=== PATIENT | female | born 1945 | race Hispanic/Latino ===

== ENCOUNTER 2019-06-15 09:46 | Emergency (ER) | payer OTHER, MEDICARE ==
[~2019-06-15 09:46] MED LIST: ACET-2743 PO; ALEN70TA10 PO; ATOR40TA71 PO; LISI30TA4 PO; SOLI10TA PO
[2019-06-15 10:32] LABS: BASOPHILS % (AUTO) 0.6 % (0.0-5.0); EOSINOPHILS % (AUTO) 1.2 % (0.0-8.0); HEMATOCRIT 31.3 % (36-48); LYMPHOCYTES % (AUTO) 25.5 % (21.0-51.0); MEAN CORPUSCULAR HEMOGLOBIN 30.3 pg (27.0-33.0); MEAN CORPUSCULAR HGB CONC 32.9 g/dL (32.0-36.0); MEAN CORPUSCULAR VOLUME 92.1 fL (79-99); MONOCYTES % (AUTO) 8.9 % (3.0-13.0); NEUTROPHILS % (AUTO) 63.4 % (40.0-77.0); PLATELET COUNT (AUTO) 169 K/uL (130-400); RED CELL DISTRIBUTION WIDTH 13.2 % (11.0-15.5); WHITE BLOOD COUNT (AUTO) 4.8 K/uL (4.8-10.8)
[2019-06-15 10:37] LABS: CREATININE 0.9 mg/dL (0.5-1.5); POTASSIUM 3.4 mmol/L (3.5-5.1)
[2019-06-15 10:42] LABS: INR 1.09 (0.85-1.15); PARTIAL THROMBOPLASTIN TIME 24.6 SEC (26.3-35.5); PROTHROMBIN TIME 11.4 SEC (9.6-11.6)
[2019-06-15 10:46] LABS: ALBUMIN 3.2 g/dL (3.5-5.0); BILIRUBIN,TOTAL 0.5 mg/dL (0.2-1.0); TOTAL PROTEIN, SERUM 6.7 g/dL (6.0-8.3)
[2019-06-15 10:53] LABS: B-TYPE NATRIURETIC PEPTIDE 42 pg/mL (0-100)
[2019-06-15 10:58] LABS: APPEARANCE,URINE Clear (CLEAR); BILIRUBIN,URINE Negative (NEGATIVE); COLOR,URINE Yellow (YELLOW); GLUCOSE, URINE (UA) Negative (NEGATIVE); KETONES,URINE Negative (NEGATIVE); LEUKOCYTE ESTERASE ,URINE Trace (NEGATIVE); NITRATE,URINE Negative (NEGATIVE); OCCULT BLOOD,URINE Small (NEGATIVE); PROTEIN,URINE Negative (NEGATIVE)
[2019-06-15 11:13] LABS: BACTERIA,URINE Rare /HPF (None Seen); WBC,URINE 0-1 /HPF (0-1)
[2019-06-15 11:14] LABS: MUCUS,URINE Rare LPF (None Seen); SQUAMOUS EPITHELIAL CELL,UR Rare /HPF (0-2)
[2019-06-15] MEDS ORDERED: POTASSIUM CHLORIDE 20 MEQ ERTAB PO ONE (11:22)
[2019-06-15] MEDS ORDERED: SODIUM CHLORIDE 0.9% 1000ML 1,000 ML IV ONE ×2 (11:23→12:16)
== END 2019-06-15 15:05 | disposition home or self-care (01) ==
LOC: EDH 09:46
DX: E86.1 Hypovolemia (principal); D64.9 Anemia, unspecified; E78.5 Hyperlipidemia, unspecified; I10 Essential (primary) hypertension; Z90.710 Acquired absence of both cervix and uterus; Z79.899 Other long term (current) drug therapy
CPT/HCPCS: 36415; 71045; 80053; 81001; 82550; 83605; 83880; 84484; 85025; 85610; 85730; 87040 ×2; 87804 ×2; 93005; 96360; 96361; 99285; J7030 ×2; 96365; 96366

== ENCOUNTER 2019-07-12 17:38 | Emergency (ER) | payer OTHER, MEDICARE | END 2019-07-12 18:44 | disposition home or self-care (01) | LOC: EDH 17:38 | DX: F33.8 Other recurrent depressive disorders (principal); E78.5 Hyperlipidemia, unspecified; I10 Essential (primary) hypertension; Z90.49 Acquired absence of other specified parts of digestive tract; Z90.710 Acquired absence of both cervix and uterus | CPT/HCPCS: 99281 ==

== ENCOUNTER 2019-10-26 04:49 | Inpatient (IN) | payer OTHER, MEDICARE ==
[~2019-10-26] VITALS: Ht 154.9 cm; Wt 69.1 kg
[2019-10-26 06:06] LABS: BASOPHILS % (AUTO) 0.4 % (0.0-5.0); EOSINOPHILS % (AUTO) 1.1 % (0.0-8.0); HEMATOCRIT 27.8 % (36-48); LYMPHOCYTES % (AUTO) 21.3 % (21.0-51.0); MEAN CORPUSCULAR HEMOGLOBIN 31.8 pg (27.0-33.0); MEAN CORPUSCULAR HGB CONC 33.8 g/dL (32.0-36.0); MEAN CORPUSCULAR VOLUME 93.9 fL (79-99); MONOCYTES % (AUTO) 11.4 % (3.0-13.0); NEUTROPHILS % (AUTO) 65.4 % (40.0-77.0); PLATELET COUNT (AUTO) 292 K/uL (130-400); RED BLOOD CELL COUNT(AUTO) 2.96 MIL/uL (4.00-5.50); WHITE BLOOD COUNT (AUTO) 7.2 K/uL (4.8-10.8)
[2019-10-26 06:21] LABS: B-TYPE NATRIURETIC PEPTIDE 28 pg/mL (0-100)
[2019-10-26 06:32] LABS: PARTIAL THROMBOPLASTIN TIME 18.9 SEC (26.3-35.5); PROTHROMBIN TIME 10.8 SEC (9.6-11.6)
[2019-10-26 07:13] LABS: ALBUMIN 3.6 g/dL (3.5-5.0); BILIRUBIN,TOTAL 0.4 mg/dL (0.2-1.0); CREATININE 2.2 mg/dL (0.5-1.5); POTASSIUM 4.6 mmol/L (3.5-5.1); TOTAL PROTEIN, SERUM 6.8 g/dL (6.0-8.3)
[2019-10-26 07:36] LABS: APPEARANCE,URINE CLEAR (CLEAR); BILIRUBIN,URINE NEGATIVE (NEGATIVE); COLOR,URINE YELLOW (YELLOW); GLUCOSE, URINE (UA) NEGATIVE (NEGATIVE); KETONES,URINE NEGATIVE (NEGATIVE); LEUKOCYTE ESTERASE ,URINE NEGATIVE (NEGATIVE); NITRATE,URINE NEGATIVE (NEGATIVE); OCCULT BLOOD,URINE NEGATIVE (NEGATIVE); PROTEIN,URINE NEGATIVE (NEGATIVE)
--- NOTE | 2019-10-26 09:34 | NUR ---
CALL TO DAUGHTER LISANDRO FOR DISCHARGE PLANNING ONLY NUMBER ON THE CHART IS LISANDRO'S NUMBER, WHICH IS ACTUALLY THE PATIENTS PHONE. LISANDRO STATES PATIENT LIVES WITH FATHER, WHO IS ALSO ILL, WEAK, AND VERY DEAF, AND DAUGHTER, WHO IS LEGALLY BLIND. STATES THAT PATIENT HAS BECOME VERY WEAK THIS LAST WEEK, STATES IS DEPRESSED DOES NOT WANT TO EAT, OR GET UP. STATES RAMP. WHEELCHAIR, WALKER, SHOWER CHAIR LISANDRO STATES PATIENT HAS NURSES COME BY P[facility]IVE [facility] OUT OF [facility], BUT SHE DOS NOT KNOW WHY THEY ARE COMING BUT THINKS ITS BECAUSE HER MOTHER IS DEPRESSED. CM TO FOLLOW Addendum: 10/26/19 at 1646 by LUANN CARLSON RN CM Amended: Links added.
[2019-10-26 16:43] VITALS: BP 124/77
--- NOTE | 2019-10-26 16:48 | NUR ---
JULIO CÉSAR WONG ADVISED BY PATIENT'S PCP HAT DR. STARKEY STATES PATIENT SHOULD NOT GO HOME, NOT A SAFE DISCHARGE CALL TO CRYSTAL, DAUGHTER, WHO STATES THAT SPOUSE, DAUGHTER AND PATIENT WILL DELCINE PLACEMENT, THEY WANT TO BE TOGETHER. "WHO WILL LOOK AFTER MY FATHER AND ME IF MY MOTHER GOES TO A PLACE? " ASKED DAUGHTER WHY NO PROVIDER SERVICES, DAUGHTER SAYS PENDING AT THIS TIME. ASKED DAUGHTER FOR NUMBER OF CLINIC- [phone], LEFT MESSAGE FOR [facility], SUPERINTENDENT TRANSMISSION OF PALLIATIVE PROGRAM TO CALL BACK IN A MEETING ,
[2019-10-26 16:59] LABS: ABG BASE EXCESS 0.9 mmol/L (-2.0-3.0); ABG HCO3 25.2 mmol/L (21.0-28.0); ABG OXYGEN SATURATION 97.2 % (95.0-99.0); ABG PCO2 40 mmHg (32-45)
--- NOTE | 2019-10-26 19:30 | NUR ---
MOVED Pt moved to room 306,report given per Paradise Bacon.
[2019-10-26 20:08] VITALS: BP 136/86
[2019-10-26 23:36] VITALS: BP 143/55
[2019-10-27 03:42] LABS: BASOPHILS % (AUTO) 0.5 % (0.0-5.0); EOSINOPHILS % (AUTO) 1.8 % (0.0-8.0); HEMATOCRIT 30.1 % (36-48); LYMPHOCYTES % (AUTO) 26.4 % (21.0-51.0); MEAN CORPUSCULAR HEMOGLOBIN 29.8 pg (27.0-33.0); MEAN CORPUSCULAR HGB CONC 32.2 g/dL (32.0-36.0); MEAN CORPUSCULAR VOLUME 92.3 fL (79-99); MONOCYTES % (AUTO) 10.8 % (3.0-13.0); NEUTROPHILS % (AUTO) 60.1 % (40.0-77.0); PLATELET COUNT (AUTO) 152 K/uL (130-400); RED BLOOD CELL COUNT(AUTO) 3.26 MIL/uL (4.00-5.50); RED CELL DISTRIBUTION WIDTH 13.4 % (11.0-15.5); WHITE BLOOD COUNT (AUTO) 5.7 K/uL (4.8-10.8)
[2019-10-27 03:59] LABS: ALANINE AMINOTRANSFERASE 23 U/L (12-78); ALBUMIN 3.3 g/dL (3.5-5.0); AMMONIA < 10 umol/L (11-32); ASPARTATE AMINOTRANSFERASE 22 U/L (10-37); BILIRUBIN,DIRECT 0.2 mg/dL (0.0-0.3); BILIRUBIN,TOTAL 0.8 mg/dL (0.2-1.0); CARBON DIOXIDE 27 mmol/L (21-32); CHLORIDE 105 mmol/L (101-111); CREATININE 0.9 mg/dL (0.5-1.5); GLOMERULAR FILTR. RATE CALC 65 mL/min (>60); GLUCOSE,RANDOM 82 mg/dL (70-105); PHOSPHORUS 3.2 mg/dL (2.5-4.9); POTASSIUM 3.5 mmol/L (3.5-5.1); SODIUM SERUM 142 mmol/L (136-145); TOTAL PROTEIN, SERUM 6.6 g/dL (6.0-8.3); UREA NITROGEN, BLOOD 26 mg/dL (7-18)
[2019-10-27 04:01] VITALS: BP 131/85
[2019-10-27 04:08] LABS: B-TYPE NATRIURETIC PEPTIDE 89 pg/mL (0-100)
--- NOTE | 2019-10-27 04:52 | NUR ---
CALM Pt awake in bed,watching tv.disoriented to time and place.Reoriented per staff.Sitter at bedside.
[2019-10-27 08:00] VITALS: BP 125/76
[2019-10-27] MEDS ORDERED: LOPERAMIDE 1 MG/7.5 ML UDCUP PO PRN (08:00)
[2019-10-27] MEDS ORDERED: ONDANSETRON HCL 4 MG/2 ML VIAL IVP PRN (08:00)
[2019-10-27] MEDS ORDERED: LACTULOSE 20 GM/30 ML UDCUP PO PRN (08:00)
[2019-10-27] MEDS ORDERED: HYDRALAZINE HCL 20 MG/ML VIAL IV PRN (08:00)
--- NOTE | 2019-10-27 08:56 | NUR ---
Call rec'd from Esha ELLINGTON from patient's current palliative care program States would be glad to talk to CM or SW re: patient's home situation/discharge plan. [facility] also an open APS care- Flaquita Obrien is the worker at [phone]. States her cell is [phone]- states please have SW or CM TEXT that number and she will return call when she can between meetings. [facility] also an open APS care- Flaquita Obrien is the worker at [phone]. Advised her will pass this info on the the CM and the SW. Addendum: 10/27/19 at 0902 by LUANN CARLSON RN CM Amended: Links added.
[2019-10-27] MEDS: **HM** VESICARE 10MG PO SCH (09:00)
[2019-10-27] MEDS: SODIUM CHLORIDE 0.9% 1000ML 1,000 ML IV SCH (09:18)
[2019-10-27] MEDS: LISINOPRIL 20 MG TABLET PO SCH (09:19)
[2019-10-27] MEDS: ASPIRIN 81MG TAB.CHEW PO SCH (09:20)
[2019-10-27] MEDS: PANTOPRAZOLE SODIUM 40 MG TABLET.DR PO SCH (09:20)
--- NOTE | 2019-10-27 11:16 | NUR ---
CHART CHECK COMPLETED. Pt IS A 74 Y.O. FEMALE ADMITTED SECONDARY TO ALTERED MENTAL STATUS (POSSIBLE METABOLIC ENCEPHALOPATHY). Pt HAS A PAST MEDICAL HISTORY HYPERTENSION, HYPERLIPIDEMIA, ACUTE ON CHRONIC RENAL FAILURE. Pt CURRENTLY ON REGULAR TEXTURE, THIN LIQUID DIET. Pt CONFUSED WITH A 1:1 SITTER. PLEASE REQUEST FORMAL SWALLOW EVALUATION IF Pt PRESENTS WITH +S/S OF ASPIRATION DURING P.O. OF COUGH RESPONSE, THROAT CLEAR OR WET VOCAL QUALITY. Addendum: 10/27/19 at 1122 by LUCIE CROOKS, [facility] Amended: Links added.
--- NOTE | 2019-10-27 11:32 | NUR ---
APS Sw left message for Flaquita Caro [phone] to discuss home situation and discharge of pt. Waiting for call back
--- NOTE | 2019-10-27 11:36 | NUR ---
APS CASE CLOSED Sw recd message from Flaquita Obrien, APS case was closed in September. At that time pt was reported for not being compliant with meds. Pt had provider and HH services in place at that time. Flaquita not sure if home situation has changed.
[2019-10-27 12:00] VITALS: BP 130/63
--- NOTE | 2019-10-27 14:33 | NUR ---
HOME SITUATION Sw called daughter Virginia to discuss DCP for PT. Daughter states that pt lives with her and daughter. Daughter is blind, is Hard of Hearing. Pt has hx of CVAx2 and daughter reports was recently dx with Dementia. Daughter states that all 3 of them have provider services. Pt and have services thru [facility]. Daughter states that it's been 2-3 weeks that they have had no provider services related to provider quitting. Daughter states she has name of someone that they want to talk to to see if they would be parents provider, but since pt is in the hospital, daughter has not followed thru. Daughter states provider was offended when she was asked to iron clothes for parents and walked out. Daughter reports that prior to candi, pt was bathing herself daily, was cooking and laundry, and daughter was sweeping. Daughter states she believes pt is dehydrated, because this is how pt has been is past when dehydrated. Daughter states plan is for pt to return home at dc.
--- NOTE | 2019-10-27 14:41 | NUR ---
[facility] Sw spoke to Amanda at [facility]. Per Amanda, pt is approved for 21hrs a week, but services are on hold by pt and . Pt and daughter are requesting anyone entering their home must be Covid tested and be negative. Amanda states that their workers will not be able to test if they have no symptoms. Family also know to to agency as very demanding and asking providers to do things that are not approved such as scrubbing floors, ironing, transporting them. Per Amanda, is most demanding of the family. Services that were being provided by provider are assist with all ADLS, home management, laundry, meal prep, toileting and medication monitoring. Services on hold until family changes.
--- NOTE | 2019-10-27 15:05 | NUR ---
FAMILY UPDATE MULTIPLE CALL ATTEMPTS MADE TO FAMILY (DAUGHTER AND SPOUSE), NO ANSWER, MESSAGE LEFT.
[2019-10-27 16:00] VITALS: BP 132/73
[2019-10-27] MEDS: ATORVASTATIN CALCIUM 40 MG TABLET PO SCH (22:35)
[2019-10-27 23:43] VITALS: BP 116/65
[2019-10-28 04:00] VITALS: BP 117/61
[2019-10-28] MEDS: SODIUM CHLORIDE 0.9% 1000ML 1,000 ML IV SCH ×2 (04:00→16:30)
[2019-10-28 06:00] LABS: HEMATOCRIT 30.4 % (36-48); MEAN CORPUSCULAR HGB CONC 33.2 g/dL (32.0-36.0); MEAN CORPUSCULAR VOLUME 93.3 fL (79-99); RED BLOOD CELL COUNT(AUTO) 3.26 MIL/uL (4.00-5.50); RED CELL DISTRIBUTION WIDTH 13.3 % (11.0-15.5); WHITE BLOOD COUNT (AUTO) 5.9 K/uL (4.8-10.8)
[2019-10-28] MEDS ORDERED: ALENDRONATE SODIUM 35 MG TAB PO SCH (06:30)
[2019-10-28 06:37] LABS: CREATININE 0.8 mg/dL (0.5-1.5); POTASSIUM 4.7 mmol/L (3.5-5.1)
[2019-10-28 08:00] VITALS: BP 113/56
[2019-10-28] MEDS: **HM** VESICARE 10MG PO SCH (09:00)
[2019-10-28] MEDS: LISINOPRIL 20 MG TABLET PO SCH (10:18)
[2019-10-28] MEDS: PANTOPRAZOLE SODIUM 40 MG TABLET.DR PO SCH (10:18)
[2019-10-28] MEDS: ASPIRIN 81MG TAB.CHEW PO SCH (10:19)
[2019-10-28 12:00] VITALS: BP 138/75
[2019-10-28 16:00] VITALS: BP 131/76
[2019-10-28 20:00] VITALS: BP 164/66
[2019-10-28] MEDS: ATORVASTATIN CALCIUM 40 MG TABLET PO SCH (20:18)
[2019-10-28] MEDS: ACETAMINOPHEN EXTRA STRENGTH 500 MG TABLET PO PRN (22:23)
--- NOTE | 2019-10-28 23:05 | NUR ---
darryl frankel benchmark regulatory submissions associate for patient's fever of 101.3.
[2019-10-28] MEDS ORDERED: IBUPROFEN 100 MG/5 ML SUSP UDCUP PO STA (23:08)
[2019-10-28] MEDS ORDERED: IBUPROFEN 100 MG/5 ML SUSP UDCUP ONE (23:12)
[2019-10-28] MEDS ORDERED: SODIUM CHLORIDE 0.9% 500ML 500 ML IV SCH (23:15)
--- NOTE | 2019-10-28 23:21 | NUR ---
sly franekl ordered 400 ml of ibuprofen oral solution with 500 ml of bolus sodium chloride and to change regular sodium chloride to 100 ml/hour for tonight and then change it to 50 ml/hr sodium chloride in the am.
--- NOTE | 2019-10-28 23:22 | NUR ---
i am giving 500 ml of bolus sodium chloride to the patient. placed ice packs on the patient's underarms and face. decreased her room temperature to 68 degrees farenheit for now.
[2019-10-29] VITALS (7 sets, daily range): BP systolic 92–144; BP diastolic 49–74
[2019-10-29 00:45] LABS: APPEARANCE,URINE Clear (CLEAR); BILIRUBIN,URINE Negative (NEGATIVE); COLOR,URINE Yellow (YELLOW); GLUCOSE, URINE (UA) Negative (NEGATIVE); KETONES,URINE Trace mg/dL (NEGATIVE); LEUKOCYTE ESTERASE ,URINE Moderate (NEGATIVE); NITRATE,URINE Positive (NEGATIVE); OCCULT BLOOD,URINE Small (NEGATIVE); PROTEIN,URINE Negative (NEGATIVE)
[2019-10-29] MEDS: ZOSYN 3.375GM+NS 50ML 50 ML IV SCH ×4 (01:11→23:28)
[2019-10-29 01:21] LABS: BACTERIA,URINE Many /HPF (None Seen); SQUAMOUS EPITHELIAL CELL,UR Few /HPF (0-2)
[2019-10-29 05:04] LABS: BASOPHILS % (AUTO) 0.2 % (0.0-5.0); EOSINOPHILS % (AUTO) 0.2 % (0.0-8.0); HEMATOCRIT 27.7 % (36-48); LYMPHOCYTES % (AUTO) 17.3 % (21.0-51.0); MEAN CORPUSCULAR HGB CONC 32.5 g/dL (32.0-36.0); MEAN CORPUSCULAR VOLUME 92.3 fL (79-99); MONOCYTES % (AUTO) 17.1 % (3.0-13.0); NEUTROPHILS % (AUTO) 64.8 % (40.0-77.0); PLATELET COUNT (AUTO) 161 K/uL (130-400); RED CELL DISTRIBUTION WIDTH 13.3 % (11.0-15.5); WHITE BLOOD COUNT (AUTO) 8.3 K/uL (4.8-10.8)
[2019-10-29 05:38] LABS: ALBUMIN 2.6 g/dL (3.5-5.0); BILIRUBIN,TOTAL 0.7 mg/dL (0.2-1.0); MAGNESIUM 1.6 mg/dL (1.80-2.40); POTASSIUM 3.8 mmol/L (3.5-5.1); TOTAL PROTEIN, SERUM 5.7 g/dL (6.0-8.3)
[2019-10-29] MEDS: MAGNESIUM 2GM PREMIX 50ML 50 ML IV PRN (06:18)
[2019-10-29] MEDS: ASPIRIN 81MG TAB.CHEW PO SCH (09:00)
[2019-10-29] MEDS: PANTOPRAZOLE SODIUM 40 MG TABLET.DR PO SCH (09:00)
[2019-10-29] MEDS: **HM** VESICARE 10MG PO SCH (09:00)
[2019-10-29] MEDS: LISINOPRIL 20 MG TABLET PO SCH (09:00)
--- NOTE | 2019-10-29 10:00 | NUR ---
DYSPHAGIA EVAL COMPLETED. -S/S OF ASPIRATION. RECOMMEND MECHANICAL SOFT/CHOPPED, THIN LIQUIDS; PILLS CRUSHED WITH APPLESAUCE. DIETARY CONSULT RECOMMENDED SECONDARY TO POOR P.O. INTAKE. PLEASE NOTE LOW P.O. IS NOT RELATED TO DIFFICULTY SWALLOWING; SWALLOW FUNCTION PRESENT. Addendum: 10/29/19 at 1244 by LUCIE CROOKS, [facility] Amended: Links added.
[2019-10-29] MEDS: SODIUM CHLORIDE 0.9% 1000ML 1,000 ML IV SCH (11:53)
--- NOTE | 2019-10-29 13:38 | NUR ---
CM note: EMS arranged CM faxed EMS request and clinicals to [facility] and [facility], pending [facility] auth in case patient will need EMS transport to home. Primary nurse to call [facility] once pt ready to DC. Charge nurse Roddy RN made aware. CM to cont to follow up.
[2019-10-29] MEDS: ATORVASTATIN CALCIUM 40 MG TABLET PO SCH (19:24)
[2019-10-30 03:35] VITALS: BP 139/81
[2019-10-30] MEDS: SODIUM CHLORIDE 0.9% 1000ML 1,000 ML IV SCH (07:53)
[2019-10-30 08:00] VITALS: BP 124/74
--- NOTE | 2019-10-30 08:30 | NUR ---
AM MEAL pt has a sitter at door [address] ,sitter assisting pt with breakfast , pt picked up food and dumped it out ,did not want to eat at this time
[2019-10-30] MEDS: **HM** VESICARE 10MG PO SCH (09:00)
[2019-10-30] MEDS: ZOSYN 3.375GM+NS 50ML 50 ML IV SCH ×2 (09:28→16:15)
[2019-10-30] MEDS: ASPIRIN 81MG TAB.CHEW PO SCH (09:29)
[2019-10-30] MEDS: LISINOPRIL 20 MG TABLET PO SCH (09:30)
[2019-10-30] MEDS: PANTOPRAZOLE SODIUM 40 MG TABLET.DR PO SCH (09:30)
[2019-10-30] MEDS: MAGNESIUM 2GM PREMIX 50ML 50 ML IV PRN (11:52)
--- NOTE | 2019-10-30 14:00 | NUR ---
Called patients daughter 2 times no answer jayce 20 min later daughter calls me back ,told her the doctor has discharged her MOM and will be returning via ambulance ,she states no we can not take care of her at home if she falls we cant pick her up and also we need a written letter stating she does not have the Covid virus ,I told her i would have the social work case manager call her back because I had spoke to the social work case manager earlier in my shift and she was understanding that you wanted your MOM at home and refused placement for her so she was returning home with the assistance of a provider for 20 hours weekly at home,called social work case manager Zora to inform her of the change in plans ,also informed Marianela ELLINGTON of change in plans
--- NOTE | 2019-10-30 15:00 | NUR ---
GUZMAN Guzman cath DCd
[2019-10-30 16:00] VITALS: BP 136/76
[2019-10-30 19:47] VITALS: BP 100/56
--- NOTE | 2019-10-30 19:50 | NUR ---
PM Assessment Received pt with 1:1 sitter, routine assessment done, pt noted to be confused, unfocused to questions being asked, noted keep talking on random subjects. Pt though noted follows simple command. NS at 50cc/hr infusing well. Reported by previous nurse that requested COVID test by family has not been ordered at this time, pt pending placement. Pt currently denies discomfort, DTV 1500 - 2300.
[2019-10-30] MEDS: ATORVASTATIN CALCIUM 40 MG TABLET PO SCH (21:12)
--- NOTE | 2019-10-30 23:00 | NUR ---
Re: DTV Reported by bedside gaurang Iqbal stated that pt voided but very little in a diaper. Bladder palpated no distention noted, bladder scan initiated 192cc, will continue to monitor, denies discomfort.
[2019-10-30 23:07] VITALS: BP 158/64
[2019-10-31] MEDS: ZOSYN 3.375GM+NS 50ML 50 ML IV SCH ×3 (00:26→17:36)
--- NOTE | 2019-10-31 06:07 | NUR ---
Re: DTV Reported by gaurang Iqbal stated that the pt had voided incontinently large amount at this time.
[2019-10-31 08:00] VITALS: BP 134/58
[2019-10-31] MEDS: **HM** VESICARE 10MG PO SCH (09:00)
[2019-10-31] MEDS: SODIUM CHLORIDE 0.9% 1000ML 1,000 ML IV SCH ×2 (10:40→23:01)
[2019-10-31] MEDS: ASPIRIN 81MG TAB.CHEW PO SCH (10:41)
[2019-10-31] MEDS: PANTOPRAZOLE SODIUM 40 MG TABLET.DR PO SCH (10:42)
[2019-10-31] MEDS: LISINOPRIL 20 MG TABLET PO SCH (10:42)
[2019-10-31 11:22] VITALS: BP 117/58
--- NOTE | 2019-10-31 12:27 | NUR ---
DC PLAN RECEIVED ORDER FOR SNF. CHECKED NOTES PER NURSE WHEN DAUGHTER CALLED FOR CLOTH DRIER REFUSED SAID COULD NOT CARE FOR MOTHER. CHECKED NO COVID TEST IN SYSTEM. ORDER SWAB FOR POSSIBLE PLACEMENT. PATIENT ALSO ON A 1:1 AT THIS TIME. Addendum: 10/31/19 at 1228 by ABNER SPIVEY RN CM Amended: Links added.
[2019-10-31 16:00] VITALS: BP 137/55
[2019-10-31 20:00] VITALS: BP 139/58
[2019-10-31] MEDS: ATORVASTATIN CALCIUM 40 MG TABLET PO SCH (20:07)
--- NOTE | 2019-10-31 20:07 | NUR ---
MEDS SHIFT ASSESSMENT DONE, PLEASE REFER TO CHART. DUE MEDS ADMINISTERED, TOLERATED WELL. SITTER BY PT'S DOOR ON CLOSE WATCH. WILL MONITOR PT. Addendum: 11/01/19 at 0246 by KEVIN PEARL RN RN Amended: Links added.
--- NOTE | 2019-10-31 21:00 | NUR ---
CRY PT IS CRYING AND IS CONFUSED. SITTER IN AND TRIED TO CALM PT DOWN. WILL MONITOR CLOSELY.
--- NOTE | 2019-10-31 22:00 | NUR ---
PIV PT HAD CUT SIX INCH EXTENSION TUBING ON PIV LINE. VASCULAR MANAGER WAS ABLE TO SAVE PIV. CHANGED SIX INCH EXTENSION TUBING THEN RE-DRESSED PIV AND WARPED PIV SITE WITH KERLIX THEN SECURED WITH TAPE. CONTINUED IVF. ENCOURAGED TO REST AND SLEEP. PT HAD EPISODES OF CRYING THEN CALMING DOWN TO SLEEP. SITTER KEEPING CLOSE WATCH.
[2019-11-01] MEDS: ZOSYN 3.375GM+NS 50ML 50 ML IV SCH ×3 (00:34→19:28)
--- NOTE | 2019-11-01 02:00 | NUR ---
ROUNDS PT IS CALM AND QUITE, FAIRLY ASLEEP. NO DISTRESS NOTED. KEPT UNDISTURBED FOR NOW. WILL MONITOR PT. SITTER AT PT'S DOOR KEEPING CLOSE WATCH.
[2019-11-01 04:00] VITALS: BP 140/64
--- NOTE | 2019-11-01 06:00 | NUR ---
ROUNDS PT STILL ASLEEP. NO DISTRESS NOTED. KEPT RESTED AND COMFORTABLE. FOR MORE CARE.
[2019-11-01] MEDS: SODIUM CHLORIDE 0.9% 1000ML 1,000 ML IV SCH ×2 (06:15→21:27)
[2019-11-01 07:49] VITALS: BP 140/57
[2019-11-01] MEDS: **HM** VESICARE 10MG PO SCH (09:00)
[2019-11-01] MEDS: PANTOPRAZOLE SODIUM 40 MG TABLET.DR PO SCH (09:28)
[2019-11-01] MEDS: ASPIRIN 81MG TAB.CHEW PO SCH (09:29)
[2019-11-01] MEDS: LISINOPRIL 20 MG TABLET PO SCH (09:31)
--- NOTE | 2019-11-01 10:34 | NUR ---
FOLLOW UP COMPLETED. CONTINUE P.O. REGULAR TEXTURE, THIN LIQUIDS. Pt WITH IMPROVED MENTAL STATUS AT THE TIME OF radiotelegraphist FOLLOW UP. Pt ABLE TO RECALL FAMILY MEMBERS AND BREAKFAST. Pt WITH IMPROVED P.O. INTAKE AND NO OVERT S/S OF ASPIRATION WITH MEAL. Pt WITH INTAKE OF THIN LIQUIDS WITH NO OVERT S/S OF ASPIRATION. RECOMMEND CONTINUED P.O. OF REGULAR TEXTURE, THIN LIQUIDS. Pt WITH SITTER AT THIS TIME. Addendum: 11/01/19 at 1040 by LUCIE CROOKS, [facility] Amended: Links added.
[2019-11-01 11:33] VITALS: BP 154/71
--- NOTE | 2019-11-01 15:00 | NUR ---
JULIO CÉSAR Note: [facility] pending approval CM spoke to pt discussed MD recommendation for rehab, pt is agreeable, telephone consent obtained JUAN for [facility]. Pt requested to have daughter called as she is forgetful. Called pt's daughter Virginia Graf informed of MD recommendations and pt agreeable to [facility], daughter is now agreeable, telephone consent obtained JUAN for [facility]. Faxed order, clinicals, PT, PAS[facility], covid transfer [facility] to [facility], confirmation received. Spoke to Gail rodgers/Marce, will wait for clinicals to be received, made aware pending covid result taken on 10/30, will send result as soon as available. Pt pending approval at this time. EMS arranged for tomorrow in case pt receive auth, primary nurse to call [facility] once pt ready to DC. primary nurse aware. CM to cont to follow up.
[2019-11-01 16:47] VITALS: BP 161/56
[2019-11-01 19:00] VITALS: BP 104/62
[2019-11-01] MEDS: ATORVASTATIN CALCIUM 40 MG TABLET PO SCH (21:26)
[2019-11-01 23:33] VITALS: BP 147/74
[2019-11-02 00:04] VITALS: BP 147/74
[2019-11-02] MEDS: ZOSYN 3.375GM+NS 50ML 50 ML IV SCH ×3 (02:54→17:09)
[2019-11-02 03:00] VITALS: BP 139/73
[2019-11-02 08:00] VITALS: BP 172/76
[2019-11-02] MEDS: **HM** VESICARE 10MG PO SCH (09:00)
[2019-11-02] MEDS: LISINOPRIL 20 MG TABLET PO SCH (09:35)
[2019-11-02] MEDS: ASPIRIN 81MG TAB.CHEW PO SCH (09:36)
[2019-11-02] MEDS: PANTOPRAZOLE SODIUM 40 MG TABLET.DR PO SCH (09:36)
[2019-11-02] MEDS: ACETAMINOPHEN EXTRA STRENGTH 500 MG TABLET PO PRN (09:40)
[2019-11-02 12:00] VITALS: BP 141/69
--- NOTE | 2019-11-02 14:33 | NUR ---
FOLLOW UP COMPLETED. Pt WITH IMPROVED MENTAL STATUS AT THIS TIME. Pt INDEPENDENTLY FEEDING AT THIS TIME REQUIRING INITIAL SET UP. NO OVERT S/S OF ASPIRATION PRESENT. RECOMMEND CONTINUED P.O. OF REGULAR TEXTURE, THIN LIQUIDS; PILLS WHOLE WITH LIQUIDS. Addendum: 11/02/19 at 1437 by LUCIE CROOKS, [facility] Amended: Links added.
--- NOTE | 2019-11-02 15:00 | NUR ---
CM Note: Rhonda approved CM received call from Loretta rodgers/Rhonda, stated pt has approval for [facility]. Made aware pt pending covid reuslt, will fax [facility] result once available. CM spoke to Gail rodgers/Marce, informed spoke to Loretta rodgers/Rhonda approved pt for [facility]. Verbalized will check w/facility.Pending covid result today. Pending acceptance. CM to cont to follow up.
[2019-11-02 16:00] VITALS: BP 111/55
--- NOTE | 2019-11-02 16:14 | NUR ---
CM Note: [facility] pending acceptance CM spoke to Gail, sent covid result negative. Pending acceptance at this time. EMS arranged and faxed for today, primary nurse to call [facility] once pt ready to DC. CM to cont to follow up.
[2019-11-02] MEDS: SODIUM CHLORIDE 0.9% 1000ML 1,000 ML IV SCH (17:09)
--- NOTE | 2019-11-02 17:16 | NUR ---
CM Note: [facility] acceptance CM spoke to Gail rodgers/[facility]ce Banda, pt approval received pt has acceptance. EMS arranged and faxed, primary nurse to call [facility] once pt ready to DC. Primary nurse aware. CM to cont to follow up.
--- NOTE | 2019-11-02 18:18 | NUR ---
PER MD ORDERS PT DC'D TO [facility] IN [place], [place]. PIV REMOVED. REPORT GIVEN TO TAYA MARTINO. OBTAINED TELEPHONE CONSENT FROM LISANDRO CEDILLO (DAUGHTER), WITNESSED BY FRANCISCO CARMEN CHARGE NURSE FOR PT TO BE DC'D [facility]. EDUCATION AND DC INSTRUCTIONS GIVEN TO STEFANIA. EMS CONTACTED FOR TRANSFER..AWAITING PICK-UP. PT LAYING IN BED, IN NO APPARENT DISTRESS.
--- NOTE | 2019-11-02 18:35 | NUR ---
EMS ARRIVED FOR PT TRANSFER TO [facility]. NOTIFED DAUGHTER LISANDRO CEDILLO OF TRANSFER, STATED UNDERSTANDING. ALSO, NOTIFIED TAYA MARTINO AT [facility] THAT PT WAS ON HER WAY WITH EMS. CHART COPY AND DC PAPERWORK GIVEN TO EMT.
== END 2019-11-02 19:00 | DRG 682 ==
LOC: EDH 04:49 → OBSVTOIN 07:30 → EDHIP 07:30 → 3DH 15:44 → 3BH 20:07
PROVIDERS: ADMIT Internal Medicine; ATTEND Internal Medicine
DX: N17.9 Acute kidney failure, unspecified (principal); G93.41 Metabolic encephalopathy; N39.0 Urinary tract infection, site not specified; N18.9 Chronic kidney disease, unspecified; I12.9 Hypertensive chronic kidney disease with stage 1 through stage 4 chronic kidney disease, or unspecified chronic kidney disease; R29.6 Repeated falls; Z20.828 Contact with and (suspected) exposure to other viral communicable diseases; E78.5 Hyperlipidemia, unspecified; F03.90 Unspecified dementia, unspecified severity, without behavioral disturbance, psychotic disturbance, mood disturbance, and anxiety; Z86.73 Personal history of transient ischemic attack (TIA), and cerebral infarction without residual deficits
CPT/HCPCS: 36415; 36600; 70450; 70551; 71045; 80048; 80053; 81001; 81003; 82140; 82248; 82550; 82803; 83036; 83605; 83690; 83735; 83880; 84100; 84145; 84484; 85025; 85027; 85610; 85730; 87040; 87088; 87804; 92610; 93005; 97039; G0378; J0360; J2543; J3475; J7030; U0003